=== PATIENT | female | born 1975 | race Caucasian/White ===

== ENCOUNTER 2018-08-20 17:18 | Emergency (ER) | payer OTHER, SELFPAY ==
--- NOTE | 2018-08-20 17:21 | DI.CT_ITS ---
SYMPTOM/DIAGNOSIS: FALL, CONFUSION NONCONTRAST HEAD CT: No intracranial hemorrhage, mass or infarct is seen. There is no evidence of skull fracture. The ventricles are normal in size. The sinuses and mastoid air cells appear clear. IMPRESSION: Negative head CT CT CERVICAL SPINE: There is no evidence of fracture or subluxation. There is no prevertebral soft tissue swelling. No pneumothorax is seen at the lung apices. IMPRESSION: Negative CT of the cervical spine.
[2018-08-20 17:23] VITALS: BP 128/83; PULSE 88; RESP 14; TEMP 36.7; O2SAT 100
--- NOTE | 2018-08-20 17:28 | W.ED.GENAD ---
Discharge Plan Disposition Patient Disposition: HOME Condition: Stable Discharge Details Chief Complaint: AMS/LOC Clinical Impression: Concussion, Cervical strain ED Provider: Austen Chung Discharge Instructions Instructions: Concussion (ED) Additional Instructions: do not participate in sports until you see your primary care provider If you have new symptoms such as chest pain/pressure, abdominal pain or feel more ill return to the emergency department Medical Decision Making 43 yo female who denies chronic med problems comes in with chief complaint of confusion. She was at the [employer] and reportedly had a fall, and was wearing a helmet. Unknown loc but is currently confused, only knows her name and that it is afternoon, doesn't know where she is, doesn't know where she[place] [facility] [place] of [place]. She has no abd tenderness, no chest tenderness, full rom of the arms and legs without pain. Given her fall will image head and c spine to eval for traumatic injuries imaging negative and she remains stable, no pain on c spine so cleared clinically. She is concussed, her boyfriend is here and willing to take her home, will d/c and advised f/u with pcp and return precautions given Differential Diagnosis concussion, tbi, cervical strain Imaging Data Radiologic Study: Attestation: I personally reviewed and interpreted this imaging study as follows: Imaging: CT Scan Radiologist's impression: no acute findings on head and c spine ct HPI General Mode of arrival: EMS. Date/Time Provider Initiated Documentation: 08/20/18 17:21. Limitations to Documentation: other (confusion). Information obtained by: patient. History of Present Illness 43 year old F presents to the emergency department with the chief complaint of confusion, described as moderate, and it has been constant. No relieving factors improve symptom(s), No exacerbating factors reported . Patient did receive the following treatments prior to arrival, none Review of Systems Review of Systems All systems reviewed & are unremarkable except as noted in HPI and below Constitutional Denies chills, Denies fever(s) and Denies weakness Cardiovascular Denies chest pain and Denies dyspnea Respiratory Denies cough and Denies dyspnea Gastrointestinal Denies abdominal pain, Denies nausea and Denies vomiting Integumentary/Breasts Denies rash Neurologic Denies weakness PFSH Social History Smoking/Tobacco Use Status: Never Alcohol Intake: current Alcohol Intake frequency: holidays/special occasions only Substance use type: does not use Do you feel safe at home: Yes Do you feel safe in your relationship?: Yes Exam Const General: no acute distress Orientation: alert HENMT Head: normal to inspection Ears: external ears normal General nose exam: external nose normal Mouth: moist mucous membranes Eyes General: appearance normal, both eyes and all related structures Neck Neck: normal visual inspection Resp Effort & Inspection: normal respiratory effort and able to speak in complete sentences Cardio Rate: regular rate Skin General skin exam: no rashes or lesions noted Neuro General: alert Extrem General: normal to inspection Psych Mental Status: mental status grossly normal
[2018-08-20 17:31] VITALS: RESP 14
--- NOTE | 2018-08-20 17:32 | ED.GENADUL_ITS ---
Discharge Plan Disposition Patient Disposition: HOME Condition: Stable Discharge Details Chief Complaint: AMS/LOC Clinical Impression: Concussion, Cervical strain ED Provider: Austen Chung Discharge Instructions Instructions: Concussion (ED) Additional Instructions: do not participate in sports until you see your primary care provider If you have new symptoms such as chest pain/pressure, abdominal pain or feel more ill return to the emergency department Medical Decision Making 43 yo female who denies chronic med problems comes in with chief complaint of confusion. She was at the [employer] and reportedly had a fall, and was wearing a helmet. Unknown loc but is currently confused, only knows her name and that it is afternoon, doesn't know where she is, doesn't know where she's staying ([place] [facility] [place]) and other details of her trip. She has no abd tenderness, no chest tenderness, full rom of the arms and legs without pain. Given her fall will image head and c spine to eval for traumatic injuries imaging negative and she remains stable, no pain on c spine so cleared clinically. She is concussed, her boyfriend is here and willing to take her home, will d/c and advised f/u with pcp and return precautions given Differential Diagnosis concussion, tbi, cervical strain Imaging Data Radiologic Study: Attestation: I personally reviewed and interpreted this imaging study as follows: Imaging: CT Scan Radiologist's impression: no acute findings on head and c spine ct HPI General Mode of arrival: EMS . Date/Time Provider Initiated Documentation: 08/20/18 17:21 . Limitations to Documentation: other (confusion) . Information obtained by: patient . History of Present Illness 43 year old F presents to the emergency department with the chief complaint of confusion, de scribed as moderate, and it has been constant. No relieving factors improve symptom(s), No exacerbating factors reported . Patient did receive the following treatments prior to arrival, none Review of Systems Review of Systems All systems reviewed & are unremarkable except as noted in HPI and below Constitutional Denies chills, Denies fever(s) and Denies weakness Cardiovascular Denies chest pain and Denies dyspnea Respiratory Denies cough and Denies dyspnea Gastrointestinal Denies abdominal pain, Denies nausea and Denies vomiting Integumentary/Breasts Denies rash Neurologic Denies weakness PFSH Social History Smoking/Tobacco Use Status: Never Alcohol Intake: current Alcohol Intake frequency: holidays/special occasions only Substance use type: does not use Do you feel safe at home: Yes Do you feel safe in your relationship?: Yes Exam Const General: no acute distress Orientation: alert HENMT Head: normal to inspection Ears: external ears normal General nose exam: external nose normal Mouth: moist mucous membranes Eyes General: appearance normal, both eyes and all related structures Neck Neck: normal visual inspection Resp Effort & Inspection: normal respiratory effort and able to speak in complete sentences Cardio Rate: regular rate Skin General skin exam: no rashes or lesions noted Neuro General: alert Extrem General: normal to inspection Psych Mental Status: mental status grossly normal
[2018-08-20 17:38] LABS: Abs Immature Grans 0.02 k/cumm (0.0-0.09); Absolute Basophil Count 0.04 k/cumm (0.0-0.2); Absolute Eosinophil Count 0.09 k/cumm (0.0-0.7); Absolute Lymphocyte Count 2.58 k/cumm (1.2-3.4); Absolute Monocyte Count 0.75 k/cumm (0.11-0.7); Absolute Neutrophil Count 5.97 k/cumm (1.2-6.7); Basophils % 0.4; HCT 39.3 % (36.0-46.0); HGB 13.4 g/dL (12.0-15.5); Immature Grans % 0.2; Lymphocytes % 27.3; Mean Corp. HGB Concentration 34.1 g/dL (32.0-36.0); Mean Corpuscular Hemoglobin 30.9 pg (27.0-33.0); Mean Corpuscular Volume 90.6 fL (80-95); Mean Platelet Volume 10.5 fL (8.0-11.0); Monocytes % 7.9; Neutrophils % 63.2; Platelet Count 239 x1000/uL (130-400); RBC 4.34 m/cumm (4.00-5.20); RBC Distribution Width 12.5 % (11.7-14.6); White Blood Cell Count 9.45 k/cumm (4.4-10.8)
[2018-08-20 17:48] LABS: INR 1.1 (0.9-1.1); PTT Activated 20.5 sec (21.0-31.4); Prothrombin Time 11.2 sec (9.3-11.0)
[2018-08-20 17:51] LABS: ALT 11 U/L (12-78); AST 10 U/L (15-37); Albumin 4.2 g/dL (3.4-5.0); Alkaline Phosphatase 50 U/L (46-116); Anion Gap 9.7 mmol/L (3-11); BUN 14 mg/dL (7-18); Bilirubin, Total 0.3 mg/dL (0.2-1.0); CO2 27.3 mmol/L (21.0-32.0); CREATININE 0.89 mg/dL (0.55-1.02); Calcium 9.4 mg/dL (8.5-10.1); Chloride 104 mmol/L (98-107); ETHANOL BLOOD < 3.0 mg/dL (<3); Glucose 106 mg/dL (70-100); Potassium 4.2 mmol/L (3.5-5.1); Sodium 141 mmol/L (136-145)
--- NOTE | 2018-08-20 18:30 | DI.VRAD_ITS ---
EXAM: CT Head Without Contrast EXAM DATE/TIME: 08/20/2018 5:23 PM CLINICAL HISTORY: 43 years old, female; Injury or trauma; Fall; Initial encounter TECHNIQUE: Imaging protocol: Axial computed tomography images of the head without contrast. Coronal and sagittal reformatted images were created and reviewed. COMPARISON: No relevant prior studies available. FINDINGS: Brain: Unremarkable. No hemorrhage. No significant white matter disease. No edema. Ventricles: Unremarkable. No ventriculomegaly. Bones/joints: Unremarkable. No acute fracture. Sinuses: Visualized sinuses are unremarkable. No fluid levels. Mastoid air cells: Visualized mastoid air cells are well aerated. No mastoid effusion. Soft tissues: Unremarkable. IMPRESSION: No acute abnormality. EXAM: CT Cervical Spine Without Contrast EXAM DATE/TIME: 08/20/2018 5:23 PM CLINICAL HISTORY: 43 years old, female; Injury or trauma; Fall; Initial encounter TECHNIQUE: Imaging protocol: Axial computed tomography images of the cervical spine without contrast. Coronal and sagittal reformatted images were created and reviewed. COMPARISON: No relevant prior studies available. FINDINGS: Vertebrae: No fracture or subluxation. Discs/Spinal canal/Neural foramina: Mild degenerative disc disease at C5-C6. No bony spinal stenosis. Soft tissues: Unremarkable. Lungs: Lung apices are clear. IMPRESSION: No fracture. Dictated and Authenticated by: Carlito Steele MD. Ordering:ALDO Boyce MD
[2018-08-20 18:52] VITALS: BP 121/76; PULSE 78; RESP 16; O2SAT 98
== END 2018-08-20 18:58 | disposition home or self-care (01) ==
LOC: ER 19:17
PROVIDERS: Emergency Provider Emergency Medicine
DX: S06.0X9A Concussion with loss of consciousness of unspecified duration, initial encounter (principal); S16.1XXA Strain of muscle, fascia and tendon at neck level, initial encounter; V18.0XXA Pedal cycle driver injured in noncollision transport accident in nontraffic accident, initial encounter
CPT/HCPCS: 36415; 80053; 99284; 70450; 72125; 80320; 85025; 85610; 85730